=== PATIENT | male | born 1955 | race Caucasian/White ===

== ENCOUNTER 2019-05-04 07:18 | Emergency (ER) | payer OTHER ==
[~2019-05-04] VITALS: Ht 177.8 cm; Wt 63.5 kg
[~2019-05-04 07:18] MED LIST: ALDACTONE25 MG PO; COREG25 MG PO; FLOMAX0.4 MG PO; IBUPROFEN 600600 M1 PO; LASIX 20 MG TAB20 MG PO; LISINOPRIL10 MG PO; PERCOCET 5-3251 EACH PO
[2019-05-04 07:52] LABS: BASOPHILS 0.8 % (0.0-2.0); EOSINOPHILS 1.2 % (0.0-3.0); HEMATOCRIT 43.8 % (42.0-52.0); HEMOGLOBIN 15.4 gm/dL (14.0-18.0); LYMPHOCYTES 19.1 % (24.0-44.0); MCH 34.5 pg (26.0-34.0); MCHC 35.2 g/dL (28.0-37.0); MONOCYTES 4.9 % (1.0-8.0); PLATELET COUNT 131 thou/uL (150-400); RBC 4.47 mil/uL (4.50-6.00); RDW 12.9 % (10.5-14.5); WBC 9.5 thou/uL (4.0-11.0)
[2019-05-04 08:00] LABS: ANION GAP 8 mmol/L (7-16); BUN 20 mg/dL (7-18); CALCIUM 8.9 mg/dL (8.5-10.1); CHLORIDE 102 mmol/L (98-107); CO2 25 mmol/L (21-32); CREATININE 1.2 mg/dL (0.7-1.3); GLUCOSE 124 mg/dL (74-106); POTASSIUM 4.8 mmol/L (3.5-5.1); SODIUM 135 mmol/L (136-145)
[2019-05-04 08:08] LABS: TROPONIN-I <0.06 ng/mL (<0.06)
[2019-05-04 08:45] VITALS: BP 119/86
--- NOTE | 2019-05-05 09:15 | EKG ---
[place] [address] [place] [address] ELECTROCARDIOGRAM REPORT Name: SHADI MONTILLA Room #: DEP IRINA Cerrato#: [id number] ������������������ Admission: 05/04/19 ������������������ Attend Phys: Discharge: 05/04/19 ������������������ Date of : 57 Report #: [id number] ����������������������������������������������������������������� [id number] THIS REPORT FOR: //name// [facility] ED Test Date: 2019-05-04 Test Time: 07:30:32 Pat Name: SHADI MONTILLA Department: Room: Gender: M Needle Leader: [facility] : 1955 Requested By: Gregory Grover Order Number: [id number] MD: Maynor Hinojosa Measurements Intervals [place] Rate: 76 P: 65 [place]: 168 QRS: -10 QRSD: 102 T: 115 QT: 441 QTc: 496 Interpretive Statements Sinus rhythm LVH with secondary repolarization abnormality Borderline prolonged QT interval Compared to ECG 10/14/2016 12:30:28 ST (T wave) deviation more prominent Electronically Signed On 05-05-2019 9:14:50 CDT by Maynor Hinojosa [email or web address] ��������������������������������������������� <ELECTRONICALLY SIGNED> ���������������������������������������� By: Maynor Hinojosa MD, [facility] ��������������������������������������������� 05/05/1914 9 9 Maynor Hinojosa MD, [facility] /EPI
== END 2019-05-04 08:51 | disposition home or self-care (01) ==
LOC: ER 07:18
PROVIDERS: Emergency Medicine
DX: R06.01 Orthopnea (principal); I11.0 Hypertensive heart disease with heart failure; I50.9 Heart failure, unspecified; Z88.5 Allergy status to narcotic agent

== ENCOUNTER 2019-05-10 07:29 | Emergency (ER) | payer OTHER ==
[~2019-05-10] VITALS: Ht 177.8 cm; Wt 63.5 kg
[2019-05-10 08:04] LABS: ABSOLUTE NEUTROPHILS 7.4 thou/uL (1.4-8.2); BASOPHILS 0.9 % (0.0-2.0); EOSINOPHILS 0.8 % (0.0-3.0); HEMATOCRIT 41.4 % (42.0-52.0); HEMOGLOBIN 14.4 gm/dL (14.0-18.0); LYMPHOCYTES 13.9 % (24.0-44.0); MCH 34.4 pg (26.0-34.0); MCHC 34.7 g/dL (28.0-37.0); MCV 99.2 fL (80.0-100.0); MONOCYTES 6.2 % (1.0-8.0); PLATELET COUNT 146 thou/uL (150-400); POLYS 78.2 % (36.0-66.0); RBC 4.18 mil/uL (4.50-6.00); RDW 13.2 % (10.5-14.5); WBC 9.5 thou/uL (4.0-11.0)
[2019-05-10 08:09] LABS: ANION GAP 10 mmol/L (7-16); BUN 26 mg/dL (7-18); CALCIUM 9.1 mg/dL (8.5-10.1); CHLORIDE 104 mmol/L (98-107); CO2 25 mmol/L (21-32); CREATININE 1.4 mg/dL (0.7-1.3); GLUCOSE 108 mg/dL (74-106); POTASSIUM 4.4 mmol/L (3.5-5.1); SODIUM 139 mmol/L (136-145)
[2019-05-10 08:19] LABS: ALBUMIN 3.4 g/dL (3.4-5.0); DIRECT BILIRUBIN 0.4 mg/dL (<0.1-0.3); MAGNESIUM 1.8 mg/dL (1.8-2.4); SGOT 31 U/L (15-37); SGPT 36 U/L (30-65); TOTAL BILIRUBIN 1.2 mg/dL (<0.1-1.0); TOTAL PROTEIN 7.5 g/dL (6.4-8.2); TROPONIN-I <0.06 ng/mL (<0.06)
[2019-05-10] MEDS ORDERED: XANAX 0.5 MG0.5 M1 PO (09:24)
[2019-05-10] MEDS ORDERED: LASIX 20 MG TAB20 MG PO (09:24)
[2019-05-10 09:46] VITALS: BP 129/103
--- NOTE | 2019-05-12 07:59 | EKG ---
[place] [address] [facility] [place] [address] ELECTROCARDIOGRAM REPORT Name: SHADI MONTILLA Room #: DEP Saqib#: [id number] ������������������ Admission: 05/10/19 ������������������ Attend Phys: Discharge: 05/10/19 ������������������ Date of : 57 Report #: [id number] ����������������������������������������������������������������� [id number] THIS REPORT FOR: //name// [facility] ED Test Date: 2019-05-10 Test Time: 07:35:35 Pat Name: SHADI MONTILLA Department: Room: Gender: Hospice Nurse: LEVI : 1955 Requested By: Minerva Soriano Order Number: [id number] MD: Maynor Hinojosa Measurements Intervals [place] Rate: 74 P: 86 [place]: 159 QRS: -1 QRSD: 106 T: 133 QT: 431 QTc: 479 Interpretive Statements Sinus rhythm LVH with secondary repolarization abnormality Borderline prolonged QT interval Compared to ECG 05/04/2019 07:30:32 No significant changes Electronically Signed On 05-12-2019 7:59:04 CDT by Maynor Hinojosa [email or web address] ��������������������������������������������� <ELECTRONICALLY SIGNED> ���������������������������������������� By: Maynor Hinojosa MD, [facility] ��������������������������������������������� 05/12/19 0759 4 4 Maynor Hinojosa MD, [facility] /EPI
== END 2019-05-10 09:45 | disposition home or self-care (01) ==
LOC: ER 07:29
PROVIDERS: Emergency Medicine
DX: I11.0 Hypertensive heart disease with heart failure (principal); I50.9 Heart failure, unspecified; Z88.5 Allergy status to narcotic agent; Z86.19 Personal history of other infectious and parasitic diseases

== ENCOUNTER 2019-05-18 13:47 | Inpatient (IN) | payer OTHER ==
[~2019-05-18] VITALS: Ht 177.8 cm; Wt 68.5 kg
[~2019-05-18 13:47] MED LIST changes: +XANAX 0.5 MG0.5 M1 PO
[2019-05-18 13:48] VITALS: BP 108/82
[2019-05-18 14:17] LABS: HEMATOCRIT 37.2 % (42.0-52.0); HEMOGLOBIN 12.8 gm/dL (14.0-18.0); MCH 34.3 pg (26.0-34.0); MCHC 34.3 g/dL (28.0-37.0); RBC 3.72 mil/uL (4.50-6.00); RDW 13.3 % (10.5-14.5); WBC 8.6 thou/uL (4.0-11.0)
[2019-05-18 14:26] LABS: ANION GAP 8 mmol/L (7-16); BUN 24 mg/dL (7-18); CALCIUM 8.6 mg/dL (8.5-10.1); CHLORIDE 104 mmol/L (98-107); CO2 24 mmol/L (21-32); CREATININE 1.3 mg/dL (0.7-1.3); GLUCOSE 123 mg/dL (74-106); POTASSIUM 4.7 mmol/L (3.5-5.1); SODIUM 136 mmol/L (136-145)
[2019-05-18 14:32] LABS: TROPONIN-I <0.06 ng/mL (<0.06)
[2019-05-18 17:57] VITALS: BP 119/76
[2019-05-18 18:33] VITALS: BP 132/74
[2019-05-18 19:46] VITALS: BP 123/85
--- NOTE | 2019-05-18 23:59 | NUR ---
PT ARRIVED ON UNIT PRIOR TO SHIFT CHANGE FROM ER. ADMITTED WITH CHF EXACERBATION. COMES FROM HOME WITH BROTHER. STATES INCREASED WEAKNESS--SOA. MBULATING TO BATHROOM INDEPENDENTLY AND IS TOLERATING FAIR. RESTING COMFORTABLY. NO NEEDS VOICED. CALL LIGHT WITHIN REACH. WILL CONTINUE TO PROVIDE FREQUENT OBSERVATION.
[2019-05-19 04:22] VITALS: BP 117/88
--- NOTE | 2019-05-19 08:03 | EKG ---
[place] [address] [place] [address] ELECTROCARDIOGRAM REPORT Name: SHADI MONTILLA Room #: 432-P ADM IN M.R.#: [id number] ������������������ Admission: 05/18/19 ������������������ Attend Phys: Martín Harvey MD Discharge: ������������������ Date of : 57 Report #: [id number] ����������������������������������������������������������������� [id number] THIS REPORT FOR: //name// [facility] ED Test Date: 2019-05-18 Test Time: 14:14:37 Pat Name: SHADI MONTILLA Department: Room: [facility] Gender: M Ms Sql Developer: tjohnsmile : 1955 Requested By: Minerva Soriano Order Number: [id number] MD: Maynor Hinojosa Measurements Intervals [place] Rate: 69 P: 69 [place]: 168 QRS: 1 QRSD: 107 T: 127 QT: 440 QTc: 472 Interpretive Statements Sinus rhythm Borderline low voltage, extremity leads LVH with secondary repolarization abnormality Compared to ECG 05/10/2019 07:35:35 No significant changes Electronically Signed On 05-19-2019 8:03:33 CDT by Maynor Hinojosa [email or web address] ��������������������������������������������� <ELECTRONICALLY SIGNED> ���������������������������������������� By: Maynor Hinojosa MD, [facility] ��������������������������������������������� 05/19/19 0803 1414 1414 Maynor Hinojosa MD, [facility] /EPI
--- NOTE | 2019-05-19 09:08 | 2DMMODE ---
[facility] [address] [place] [address] 2 D/M-MODE ECHOCARDIOGRAM Name: ELADIASHADI Room #: 432-P ADM IN M.R.#: [id number] ������������� Admission: 05/18/19 ������������� Attend Phys: Martín Harvey, Discharge: ��� ������������� ��� Date of : 57 Date of Service: 05/19/19 0908 �� Report #: [id number] �������� ��������������������������������������������[id number] THIS REPORT FOR: //name// APPROVED REPORT Study performed: 05/19/2019 08:26:54 EXAM: Comprehensive 2D, Doppler, and color-flow Echocardiogram Patient Location: Echo lab Room #: 432 Status: routine BSA: 1.85 HR: 81 bpm BP: 117/88 mmHg Rhythm: NSR Other Information Study Quality: Excellent Indications Congestive Heart Failure Dyspnea Hx: CHF (EF 20%), HTN. 2D Dimensions RVDd: 46.86 mm IVSd: 10.29 (7-11mm) LVOT Diam: 20.91 (18-24mm) LVDd: 74.61 mm PWd: 7.76 (7-11mm) Ascending Ao: 34.09 (22-36mm) LVDs: 70.21 (25-40mm) Aortic Root: 34.29 mm Volumes Left Atrial Volume (Systole) Single Plane 4CH: 99.09 mL Single Plane 2CH: 121.42 mL LA ESV Index: 66.00 mL/m2 Aortic Valve AoV Peak Jose.: 0.74 m/s AO Peak Gr.: 2.18 mmHg LVOT Max P.40 mmHg LVOT Max V: 0.59 m/s ROBY Vmax: 2.75 cm2 Mitral Valve E/A Ratio: 3.2 [facility] [address] [place] [address] 2 D/M-MODE ECHOCARDIOGRAM Name: AJBorisSHADI Room #: [address] [place] [address] IN [facility].#: [id number] ������������� Admission: 05/18/19 ������������� Attend Phys: Martín Harvey, Discharge: ��� ������������� ��� Date of : 57 Date of Service: 05/19/19 0908 �� Report #: [id number] �������� ��������������������������������������������[id number] MV Decel. Time: 84.46 ms MV E Max Jose.: 1.01 m/s MV A Jose.: 0.32 m/s MV PHT: 33.48 ms IVRT: 59.98 ms Pulmonary Valve PV Peak Jose.: 0.52 m/s PV Peak Gr.: 1.09 mmHg Tricuspid Valve TR Peak Jose.: 3.85 m/s RAP Estimate: 15.00 mmHg TR Peak Gr.: 59.39 mmHg PA Pressure: 74.00 mmHg Left Ventricle Left ventricle is severely dilated. There is global hypokinesis of the left ventricle. There is normal left ventricular wall thickness. Left ventricular systolic function is severely decreased. LVEF is 20%. Severe diastolic dysfunction Right Ventricle Right ventricle is moderately dilated. Right ventricle is hypokinetic. Atria Left atrium is severely dilated. Right atrium is moderately dilated. Aortic Valve The aortic valve is normal in structure. No aortic regurgitation is present. There is no aortic valvular stenosis. Mitral Valve The mitral valve is normal in structure. Severe mitral regurgitation. Tricuspid Valve The tricuspid valve is normal in structure. Moderate tricuspid regurgitation. Severe pulmonary hypertension with an estimated PAP of 70-75mmHg. Pulmonic Valve The pulmonary valve is normal in structure. Mild to moderate pulmonic regurgitation. Great Vessels [facility] [address] [place] [address] 2 D/M-MODE ECHOCARDIOGRAM Name: ELADIASHADI Room #: 432-P [facility] IN M.R.#: [id number] ������������� Admission: 05/18/19 ������������� Attend Phys: Martín Harvey, Discharge: ��� ������������� ��� Date of : 57 Date of Service: 05/19/19 0908 �� Report #: [id number] �������� ��������������������������������������������[id number] The aortic root is normal in size. The ascending aorta is normal in size. IVC is dilated and collapses <50% with inspiration. Pericardium Trace pericardial effusion. Left pleural effusion noted. <Conclusion> Left ventricular systolic function is severely decreased. LVEF is 20%. Severe diastolic dysfunction Four chamber enlargement The aortic valve is normal in structure. No aortic regurgitation or stenosis The mitral valve is normal in structure. Severe mitral regurgitation. Severe pulmonary hypertension with an estimated pulmonary artery pressure of 70-75mmHg. Trace pericardial effusion. ��������������������������������������������� <ELECTRONICALLY SIGNED> ���������������������������������������� By: Maynor Hinojosa MD, [facility] ��������������������������������������������� 05/19/19907 7 7 Maynor Hinojosa MD, [facility] /INF
[2019-05-19 12:07] VITALS: BP 129/99
[2019-05-19 15:00] VITALS: BP 110/77
--- NOTE | 2019-05-19 17:15 | NUR ---
ASSESSMENT-PT LIVES IN A HOUSE WITH HIS BROTHER. PT WALS ON HIS OWN AND DOES HIS OWN ADLS. PT DRIVES. HE AND HIS BROTHER EACH DO THEIR OWN HOUSEHOLD THINGS. BOTH HE AND HIS BROTHER ARE BUT STILL HVE CONTACT WITH THEIR EXES AND HAVE GROWN CHILDREN THAT CHECK ON THEM. HE HAS 4 STEPS DOWN TO THE LAUNDRY. BATHROOM AND BEDROOM ARE LOCATED ON THE MAIN LEVEL. PT DENIES ANY DC NEEDS AT THIS TIME. FOLLOWING TO ASSIST WITH DC PLANNING.
[2019-05-19 19:23] VITALS: BP 115/81
--- NOTE | 2019-05-19 20:06 | NUR ---
PT ALERT XS 4. TO HAVE STRESS TEST IN THE MORNING. NO CAFFEINE TONIGHT. HAD ECHO TODAY. HAS LEFT AC IV ACSESS. PLEASANT AND COOPERATIVE WITH CARE.
--- NOTE | 2019-05-20 04:01 | NUR ---
ASSUMED PT CARE 1899. PT ALERT AND ORIENTED. REASSESSMENT COMPLETE. VSS. IV DRESSING C/D/I, NO SIGNS OF INFILTRATION. DENEIS PAIN, DENIES N/V. WILL CONTINUE POC UNTIL EOS.
[2019-05-20 04:45] VITALS: BP 117/79
--- NOTE | 2019-05-20 08:52 | NUR ---
PT TAKEN FROM ROOM FOR STRESS TEST AT 0845 HAS BEEN NPO SPOKE WITH DR MAYDA BENSON MEDS TO BE GIVEN WHEN PATIENT RETURNS TO UNIT.
--- NOTE | 2019-05-20 11:16 | NUR ---
PT BACK FROM STRESS TEST AT 1055 V.S 98.3 18 67 122/90 RIGHT LYING O2 SAT = 99% RA. WILL GIVE AM MEDS.
[2019-05-20 14:44] LABS: CALCIUM 8.3 mg/dL (8.5-10.1); CREATININE 1.4 mg/dL (0.7-1.3); POTASSIUM 3.6 mmol/L (3.5-5.1)
[2019-05-20 17:16] VITALS: BP 110/76
[2019-05-20 19:13] VITALS: BP 102/59
[2019-05-21] VITALS (7 sets, daily range): BP systolic 108–111; BP diastolic 75–81
--- NOTE | 2019-05-21 00:05 | NUR ---
ASSUMED CARE OF PT @1900. PT A&OX4. DENIES PAIN.VSS. AMBULATES SELF. REFUSED BP MEDS THIS EVENING STATED BP IS WITHIN RANGE 102/59 NURSE EDUCATION PROVIDED AND DOCUMENTED. CALL LIGHT WITHIN REACH AND WILL CONTINUE TO MONITOR.
--- NOTE | 2019-05-21 11:04 | NUR ---
DISCHARGE PAPERS SIGNED COPY IN CHART. IV ACSESS DCD. HOME MEDS RETRIEVED FROM PHARMACY AND GIVEN TO PATIENT. PT W/O PAIN OR RESP DISTRESS AT DISCHARGE.
== END 2019-05-21 11:40 | disposition home or self-care (01) | DRG 293 ==
LOC: ER 13:47 → 4E 17:47 → EROBS 17:47 → 4E 18:34 → ENTRNSPT 05-21 11:36 → 4E 05-21 11:40 → EDTRNSPTSTS 05-21 11:40
PROVIDERS: Emergency Medicine; ADMIT Family Medicine
DX: I11.0 Hypertensive heart disease with heart failure (principal); I50.43 Acute on chronic combined systolic (congestive) and diastolic (congestive) heart failure; I42.0 Dilated cardiomyopathy; F41.9 Anxiety disorder, unspecified; I25.10 Atherosclerotic heart disease of native coronary artery without angina pectoris; Z86.19 Personal history of other infectious and parasitic diseases; Z88.6 Allergy status to analgesic agent; Z91.14 Patient's other noncompliance with medication regimen; Z79.899 Other long term (current) drug therapy
CPT/HCPCS: 10084

== ENCOUNTER 2022-01-03 07:05 | Inpatient (IN) | payer OTHER ==
[~2022-01-03] VITALS: Ht 177.8 cm; Wt 68.0 kg
[2022-01-03 07:12] VITALS: BP 97/55
[2022-01-03 08:01] LABS: ABSOLUTE NEUTROPHILS 6.9 thou/uL (1.4-8.2); BASOPHILS 0.6 % (0.0-2.0); EOSINOPHILS 0.6 % (0.0-3.0); HEMATOCRIT 43.2 % (42.0-52.0); HEMOGLOBIN 14.8 gm/dL (14.0-18.0); LYMPHOCYTES 15.3 % (24.0-44.0); MCH 34.1 pg (26.0-34.0); MCHC 34.3 g/dL (28.0-37.0); MCV 99.3 fL (80.0-100.0); MONOCYTES 7.2 % (1.0-8.0); PLATELET COUNT 119 thou/uL (150-400); POLYS 76.3 % (36.0-66.0); RBC 4.35 mil/uL (4.50-6.00); RDW 14.1 % (10.5-14.5)
[2022-01-03 08:03] LABS: CALCIUM 8.5 mg/dL (8.5-10.1); CREATININE 1.4 mg/dL (0.7-1.3)
[2022-01-03 08:13] LABS: ALBUMIN 3.4 g/dL (3.4-5.0); TOTAL BILIRUBIN 0.7 mg/dL (0.2-1.0); TOTAL PROTEIN 7.4 g/dL (6.4-8.2)
[2022-01-03 13:16] VITALS: BP 97/71
[2022-01-03 13:37] VITALS: BP 102/77
[2022-01-03 13:50] VITALS: BP 113/82
--- NOTE | 2022-01-03 15:19 | 2DMMODE ---
[facility] [place] [address] 2 D/M-MODE ECHOCARDIOGRAM Name: SHADI MONTILLA Room #: 206-P ADM IN M.R.#: [id number] Admission: 01/03/22 Attend Phys: Tam Canseco MD Discharge: Date of : 57 Report #: [id number] THIS REPORT FOR: cc: Martín Harvey MD, Neal A. MD Park, Jin S. MD ~ APPROVED REPORT Study performed: 01/03/2022 14:17:41 EXAM: Comprehensive 2D, Doppler, and color-flow Echocardiogram Patient Location: ER Room #: 3 Status: routine BSA: 1.85 HR: 98 bpm BP: 97/71 mmHg Rhythm: Atrial Flutter Other Information Study Quality: Excellent Indications COPD Dyspnea Cardiomyopathy Atrial Flutter 2D Dimensions RVDd: 44.18 mm IVSd: 10.02 (7-11mm) LVOT Diam: 24.53 (18-24mm) LVDd: 72.94 mm PWd: 8.66 (7-11mm) Ascending Ao: 30.00 (22-36mm) LVDs: 67.20 (25-40mm) Left Atrium: 52.89 (27-40mm) Aortic Root: 32.56 mm IVC: 29.00 mm Volumes Left Atrial Volume (Systole) Single Plane 4CH: 125.05 mL Single Plane 2CH: 120.90 mL LA ESV Index: 77.00 mL/m2 Aortic Valve AoV Peak Jose.: 0.81 m/s [facility] [address] [place] [address] 2 D/M-MODE ECHOCARDIOGRAM Name: ALICIA MONTILLALEY Room #: [facility] ADM IN M.R.#: [id number] Admission: 01/03/22 Attend Phys: Tam Canseco MD Discharge: Date of : 57 Report #: [id number] AO Peak Gr.: 2.60 mmHg LVOT Max P.99 mmHg LVOT Max V: 0.50 m/s ROBY Vmax: 2.92 cm2 Pulmonary Valve PV Peak Jose.: 0.70 m/s PV Peak Gr.: 1.97 mmHg Tricuspid Valve TR Peak Jose.: 3.19 m/s TR Peak Gr.: 40.82 mmHg PA Pressure: 51.00 mmHg Left Ventricle Left ventricle is dilated. There is severe global hypokinesis of the left ventricle. There is normal left ventricular wall thickness. Left ventricular ejection fraction is severely decreased. LVEF is 20%. The left ventricular diastolic function is abnormal. Right Ventricle Right ventricle is dilated. Right ventricle is mildly hypokinetic. Atria Left atrium is dilated. Right atrium is dilated. Aortic Valve The aortic valve is normal in structure. No aortic regurgitation is present. There is no aortic valvular stenosis. Mitral Valve The mitral valve is normal in structure. Mitral valve leaflets are thickened. Severe mitral regurgitation. No evidence of mitral valve stenosis. Tricuspid Valve The tricuspid valve is normal in structure. There is mild tricuspid regurgitation. The pulmonary arterial pressure is estimated at 50 mmHg. There is moderate pulmonary hypertension. Pulmonic Valve The pulmonary valve is normal in structure. Mild pulmonic regurgitation. Great Vessels The aortic root is normal in size. IVC is normal in size and collapses <50% with inspiration. [facility] [address] [place] [address] 2 D/M-MODE ECHOCARDIOGRAM Name: SHADI MONTILLA Room #: [address] [place] [address] IN ..#: [id number] Admission: 01/03/22 Attend Phys: Tam Canseco MD Discharge: Date of : 57 Report #: [id number] Pericardium There is no pericardial effusion. <Conclusion> Left ventricle is dilated. There is normal left ventricular wall thickness. Left ventricular ejection fraction is severely decreased. Right ventricle is dilated. Left atrium is dilated. The aortic valve is normal in structure. Severe mitral regurgitation. There is mild tricuspid regurgitation. The pulmonary arterial pressure is estimated at 50 mmHg. <ELECTRONICALLY SIGNED> By: Juan Luis Pérez MD 01/03/22 1519 1519 1519 Juan Luis Pérez MD /INF
[2022-01-03 15:50] VITALS: BP 120/85
--- NOTE | 2022-01-03 16:19 | EKG ---
[address] [place] [address] ELECTROCARDIOGRAM REPORT Name: SHADI MONTILLA Room #: 206-P ADM IN M.R.#: [id number] Admission: 01/03/22 Attend Phys: Tam Canseco MD Discharge: Date of : 57 Report #: [id number] 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 : 1955 Requested By: Minerva Soriano Order Number: [id number] MD: Maynor Hinojosa Measurements Intervals [place] Rate: 98 P: [place]: QRS: 21 QRSD: 109 T: 157 QT: 390 QTc: 499 Interpretive Statements Atrial flutter with predominant 2:1 AV block Borderline low voltage, extremity leads LVH with secondary repolarization abnormality Borderline prolonged QT interval Compared to ECG 05/18/2019 14:14:37 Atrial flutter has replaced sinus rhythm Electronically Signed On 01-03-2022 16:19:13 ASSISTANT HVAC MECHANIC by Maynor Hinojosa [email or web address] <ELECTRONICALLY SIGNED> By: Maynor Hinojosa MD, [facility] 01/03/22 1619 0714 0714 Maynor Hinojosa MD, [facility] /EPI
[2022-01-03 18:16] LABS: FOLIC ACID 9.9 ng/mL (8.6-58.9)
[2022-01-03 19:20] VITALS: BP 96/67
[2022-01-04 03:23] VITALS: BP 86/73
--- NOTE | 2022-01-04 03:51 | NUR ---
RECIEVED THE PATIENT AT 1900H.ASSESSMENT DONE CHARTED.MEDS GIVEN PER JAN.KEPT NPO FROM MIDNIGHT, FOR ERIKA THIS MORNING.ALL NEEDS ATTENDED.TO CONTINOUSLY MONITOR.
[2022-01-04 04:31] LABS: ABSOLUTE NEUTROPHILS 4.6 thou/uL (1.4-8.2); BASOPHILS 0.7 % (0.0-2.0); EOSINOPHILS 1.2 % (0.0-3.0); HEMATOCRIT 39.2 % (42.0-52.0); HEMOGLOBIN 13.9 gm/dL (14.0-18.0); LYMPHOCYTES 29.5 % (24.0-44.0); MCH 34.8 pg (26.0-34.0); MCHC 35.4 g/dL (28.0-37.0); MCV 98.3 fL (80.0-100.0); MONOCYTES 7.3 % (1.0-8.0); PLATELET COUNT 108 thou/uL (150-400); POLYS 61.3 % (36.0-66.0); RBC 3.99 mil/uL (4.50-6.00); RDW 14.2 % (10.5-14.5); WBC 7.5 thou/uL (4.0-11.0)
[2022-01-04 04:53] LABS: CALCIUM 7.8 mg/dL (8.5-10.1); CREATININE 1.3 mg/dL (0.7-1.3); MAGNESIUM 2.1 mg/dL (1.8-2.4); POTASSIUM 3.6 mmol/L (3.5-5.1)
[2022-01-04 07:35] VITALS: BP 96/74
--- NOTE | 2022-01-04 07:36 | EKG ---
[place] [address] 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 <ELECTRONICALLY SIGNED> By: Maynor Hinojosa MD, [facility] 01/04/22 0735 6 6 Maynor Hinojosa MD, [facility] /EPI
[2022-01-04 08:00] VITALS: BP 96/72
--- NOTE | 2022-01-04 09:55 | TEE ---
[facility] [place] [address] [place] [address] TRANSESOPHAGEAL ECHOCARDIOGRAM Name: SHADI MONTILLA Room #: 206-P ADM IN M.R.#: [id number] Admission: 01/03/22 Attend Phys: Tam Canseco MD Discharge: Date of : 57 Report #: [id number] THIS REPORT FOR: cc: Martín Harvey MD, Neal A. MD Lundgren, Craig H. MD [facility] ~ APPROVED REPORT Study performed: 01/04/2022 08:55:52 EXAM: Transesophageal Echocardiogram with Doppler and cardioversion Patient Location: In-Patient Room #: 206 Status: routine BSA: 1.85 HR: 105 bpm BP: 96/72 mmHg Rhythm: NSR Other Information Study Quality: Good Indications Afib/flutter, Cardioversion. Hx: Cardiomyopathy, COPD. Procedure After obtaining informed consent, patient underwent transesophageal echo in the [employer]. Type of Sedation : Conscious Sedation Sedation start time: 904 Case end Time: 912 Sedation was achieved intravenously with: Versed (5) Fentanyl (75) Transesophageal probe was inserted and advanced into esophagus without difficulty by Maynor Hinojosa MD. Echo enhancement indication: R/O Septal defect. Echo enhancement agent administered: Agitated Saline The ERIKA was performed without complications. Synchronized Cardioversion attempted: Successful Synchronized Cardioversion acheived with 50 Joules after 1 attempt(s). Rhythm following Synchronized Cardioversion: Normal Sinus Rhythm Throughout the procedure, the blood pressure, pulse oximetry, cardiac [facility] [address] [place] [address] TRANSESOPHAGEAL ECHOCARDIOGRAM Name: SHADI MONTILLA Room #: 206-P ADM IN M.R.#: [id number] Admission: 01/03/22 Attend Phys: Tam Canseco MD Discharge: Date of : 57 Report #: [id number] rhythm, and rate were monitored. The patient tolerated the procedure without adverse effects. Recovery from conscious sedation was uneventful and vital signs were stable. Left Ventricle Left ventricle is dilated. There is severe global hypokinesis of the left ventricle. There is normal left ventricular wall thickness. LVEF is 20%. Right Ventricle Right ventricle is dilated and hypokinetic Atria Biatrial enlargement. No shunting noted with bubble study. No thrombus is visualized in the left atrium or appendage Aortic Valve The aortic valve is normal in structure. No aortic regurgitation is present. There is no aortic valvular stenosis. Mitral Valve The mitral valve is normal in structure. Moderately severe to severe mitral regurgitation. Tricuspid Valve The tricuspid valve is normal in structure. Mild tricuspid regurgitation. Pulmonic Valve The pulmonary valve is normal in structure. Trace pulmonic regurgitation. Great Vessels The aortic root is normal in size. Mild atherosclerotic plaquing of the aorta IVC is normal in size and collapses >50% with inspiration. Pericardium There is no pericardial effusion. <Conclusion> There is severe global hypokinesis of the left ventricle. LVEF is 20%. Biatrial enlargement. No shunting noted with bubble study. No thrombus is visualized in the left atrium or appendage [facility] [address] [place] [address] TRANSESOPHAGEAL ECHOCARDIOGRAM Name: SHADI MONTILLA Room #: 206-P ADM IN M.R.#: [id number] Admission: 01/03/22 Attend Phys: Tam Canseco MD Discharge: Date of : 57 Report #: [id number] The aortic valve is normal in structure. No aortic regurgitation is present. The mitral valve is normal in structure. Moderately severe to severe mitral regurgitation. No pericardial effusion. Successful cardioversion of atrial flutter to sinus rhythm following a single 50 J biphasic synchronous shock. <ELECTRONICALLY SIGNED> By: Maynor Hinojosa MD, [facility] 01/04/2254 3 3 Maynor Hinojosa MD, [facility] /INF
[2022-01-04 11:30] VITALS: BP 84/67
--- NOTE | 2022-01-04 11:33 | EKG ---
[address] [place] [address] ELECTROCARDIOGRAM REPORT Name: SHADI MONTILLA Room #: 206-P ADM IN M.R.#: [id number] Admission: 01/03/22 Attend Phys: Tam Canseco MD Discharge: Date of : 57 Report #: [id number] [facility] Test Date: 2022-01-04 Test Time: 10:13:37 Pat Name: SHADI MONTILLA Department: Room: 206 P Gender: M It Support Technician: : 1955 Requested By: Maynor Hinojosa Order Number: [id number] MD: Tony Carter Measurements Intervals [place] Rate: 63 P: 49 FL: 196 QRS: -52 QRSD: 112 T: 101 QT: 464 QTc: 476 Interpretive Statements Sinus rhythm LVH with secondary repolarization abnormality Compared to ECG 01/04/2022 07:27:39 Atrial flutter no longer present Myocardial infarct finding no longer present Electronically Signed On 01-04-2022 11:32:52 OXIDE FURNACE TENDER by Tony Carter [email or web address] <ELECTRONICALLY SIGNED> By: Tony Carter MD, [facility] 01/04/22 1132 1013 1013 Tony Carter MD, [facility] /EPI
--- NOTE | 2022-01-04 14:53 | NUR ---
PT ADMITTED RELATED TO NEW ONSET A FLUTTER. CM REVIEWED CHART AND SPOKE WITH CARE TEAM. CM MET WITH PT AND EX MARGARETTE MONTILLA AT BEDSIDE THIS DAY. PT APPEARED TO BE A&O X4. CM ROLE INTRODUCED. PT INDICATED HE LIVES IN A HOUSE WITH HIS BROTHER WITH 5 STEPS TO ENTER AND NO STEPS INSIDE. PT INDICATED HE HAD BEEN INDEPEDNENT WITH GAIT AND ADLS OUTBOUND CALL CENTER REPRESENTATIVE. PT INDICATED NO USE OF DME OUTBOUND CALL CENTER REPRESENTATIVE. PT INDICATED HE PLANS TO RETURN HOME ONCE MEDICALLY STABLE. PT HAD ERIKA GUIDED CARDIOVERSION THIS DAY. CARE TEAM ARE ANTICIPATING THAT PT MAY BE MEDICALLY STABLE TO DC HOME TOMORROW. PT MAY NEED ASSISTANCE WITH MEDS UPON DC. OUR OUTPATIENT PHARMACY WAS ENTERED AND CM WILL FOLLOW TO SEE IF PT NEEDS ASSIST PRIOR TO DC.
[2022-01-04 16:00] VITALS: BP 100/54; BP 156/76
--- NOTE | 2022-01-04 18:02 | NUR ---
ASSUMED PT CARE THIS MORNING. PT A&OX4 AND COMMUNICATING NEEDS TO STAFF APPROPRIATELY TO STAFF. PT HAD SOME NECK PAIN PRIOR TO A ERIKA AND CARDIOVERSION BUT DID NOT WANT ANYTHING FOR PAIN. WHEN PT RETURNED AROUND 11AM PT WAS BUCKNER, SWEATY, NAUSEATED, VOMITING, AND STATED THEY HAD RIGHT SHOULDER AND NECK PAIN. PROVIDER NOTIFIED. PT WAS GIVEN ZOFRAN AND NAUSEA SUBSIDED. PT SPENT THE REST OF THE MORNING AND AFTERNOON SLEEPING. REPORTS FEELING MUCH BETTER. PT AMBULATES INDEPENDENTLY AND VOIDS WITHOUT ANY ISSUES. PT HAD A GOOD APPETITE POST PROCEDURE. REST OF THE SHIFT WAS UNEVENTFUL.
[2022-01-04 19:58] VITALS: BP 94/65
[2022-01-05] VITALS (7 sets, daily range): BP systolic 90–109; BP diastolic 62–79
--- NOTE | 2022-01-05 03:54 | NUR ---
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
--- NOTE | 2022-01-05 12:14 | NUR ---
[employer] coupon cards provided to the pt. He is familiar with goodrx and already uses it. He indicates has tried to apply for medicaid in the past was over resourced. He is open to trying again d/t the medicaid expansion program. He has medicare part A only as he has not been able to afford part B or a part D plan. [facility] clinics discussed. He reports he works out visits with his pcp and specialist private pay or comes to the ER. He is getting fitted for l a life vest today and will likely dc tomorrow once he receives it.
--- NOTE | 2022-01-05 20:51 | NUR ---
PATIENT'S BP 90/65 WITH A HR OF 56. PATIENT HAS SCHEDULED AMIODARONE FOR 2100. JUSTINA RILEY NOTIFIED OF VITALS AND SITUATION. ORDER RECEIVED TO HOLD AMIODARONE FOR TONIGHT.
[2022-01-06 04:45] VITALS: BP 115/84
[2022-01-06 07:46] VITALS: BP 95/68
[2022-01-06] MEDS ORDERED: ELIQUIS5 MG PO (08:13)
[2022-01-06] MEDS ORDERED: AMIODARONE HCL400 MG PO (08:13)
[2022-01-06] MEDS ORDERED: CARVEDILOL3.125 MG PO (08:32)
[2022-01-06 10:37] VITALS: BP 109/79
--- NOTE | 2022-01-06 12:38 | NUR ---
discharge education provided to patient; patient understanding of discharge instructions. agreeable to discharge plan and follow-up care. pt left via wheelchair with nursing staff to personal vehicle.
== END 2022-01-06 12:57 | disposition home or self-care (01) | DRG 309 ==
LOC: ER 07:05 → 2N 14:12
PROVIDERS: Emergency Medicine; Nurse Practitioner; ADMIT Hospitalist; ATTEND Hospitalist
PROC: 5A2204Z Restoration of Cardiac Rhythm, Single (ICD-10-PCS; principal; 2022-01-04)
DX: I48.92 Unspecified atrial flutter (principal); I13.0 Hypertensive heart and chronic kidney disease with heart failure and stage 1 through stage 4 chronic kidney disease, or unspecified chronic kidney disease; I50.22 Chronic systolic (congestive) heart failure; E87.1 Hypo-osmolality and hyponatremia; N17.9 Acute kidney failure, unspecified; I48.91 Unspecified atrial fibrillation; I47.1 Supraventricular tachycardia; I42.8 Other cardiomyopathies; E78.5 Hyperlipidemia, unspecified; I44.7 Left bundle-branch block, unspecified; R79.1 Abnormal coagulation profile; N18.9 Chronic kidney disease, unspecified; J44.9 Chronic obstructive pulmonary disease, unspecified; I27.20 Pulmonary hypertension, unspecified; F17.210 Nicotine dependence, cigarettes, uncomplicated; Z60.2 Problems related to living alone; Z20.822 Contact with and (suspected) exposure to COVID-19; Z86.19 Personal history of other infectious and parasitic diseases; Z79.899 Other long term (current) drug therapy
CPT/HCPCS: 10081